=== PATIENT | male | born 1995 | race African-American/Black ===

== ENCOUNTER 2020-12-05 20:14 | Emergency (ER) | payer OTHER ==
[2020-12-05 20:23] VITALS: BP 143/82
[2020-12-05] MEDS ORDERED: TOBRAM/DEXAMETH OPHTH DROPS 2.5 ML EACHEYE STA (20:32)
--- NOTE | 2020-12-05 20:35 | ED Physician Documentation ---
PD HPI OPHTHO - Stated complaint Stated Complaint: BILAT EYE REDNESS/IRRITATED - Chief complaint Chief Complaint: Heent - History obtained from History obtained from: Patient - Additional information Additional information: Healthy 25-year-old gentleman has had eye irritation for about 5 to 6 days. It started on the right and is now on both sides. [place] moisturizing drops which have not been helpful. Subsequently got a homeopathic drop which was also not helpful. No visual deficit. He does not wear contacts. No URI symptoms. No recent travel. Review of Systems Constitutional: denies: Fever, Chills Eyes: reports: Discharge, Irritation Ears: reports: Reviewed and negative PD PAST MEDICAL HISTORY - Past Medical History Past Medical History: Yes Cardiovascular: Hypertension - Past Surgical History Past Surgical History: No - Present Medications Home Medications: Ambulatory Orders Medication Instructions Recorded Confirmed Tobramycin/Dexamethasone [Tobradex 1 drops EACHEYE QID 7 Days #1 12/05/20 Eye Drops] lisinopriL [Zestril] 5 mg PO DAILY 12/05/20 12/05/20 - Allergies Allergies/Adverse Reactions: Allergies Allergy/AdvReac Type Severity Reaction Status Date / Time No Known Drug Allergies Allergy Verified 12/05/20 20:23 - Social History Does the pt smoke?: No Smoking Status: Never smoker Does the pt drink ETOH?: No Does the pt have substance abuse?: No - Immunizations Immunizations are current?: Yes - POLST Patient has POLST: No PD ED PE NORMAL - Vitals Vital signs reviewed: Yes - General General: Alert and oriented X 3, No acute distress - HEENT HEENT: PERRL, EOMI, Other (Bloodshot conjunctivitis bilaterally, soft globes, no current drainage.) - Neck Neck: Supple, no meningeal sign, No bony TTP - Neuro Neuro: Alert and oriented X 3, Normal speech Results - Vitals Vitals: Vital Signs - 24 hr 12/05/20 20:16 Temperature 37.3 C Heart Rate 90 Respiratory 16 Rate Blood Pressure 143/82 H O2 Saturation 98 Oxygen O2 Source Room air Departure - Departure Disposition: 01 Home, Self Care Clinical Impression: Conjunctivitis Condition: Good Record reviewed to determine appropriate education?: Yes Instructions: ED Conjunctivitis Nonspecific Prescriptions: Tobramycin/Dexamethasone [Tobradex Eye Drops] 1 drops EACHEYE QID 7 Days #1 Comments: [place]. Return for new or worsening symptoms.
== END 2020-12-05 20:48 | disposition home or self-care (01) ==
LOC: ED 20:14
DX: H10.9 Unspecified conjunctivitis (principal); I10 Essential (primary) hypertension
CPT/HCPCS: 99282; 99283; A9270

== ENCOUNTER 2021-08-19 13:59 | Outpatient (CLI) | payer OTHER ==
[2021-08-19 15:01] VITALS: BP 124/78
--- NOTE | 2021-08-19 15:01 | SLEEP CARE CONSULTATION ---
Information from patient questionnaire entered by Daniela Fisher MA. I have reviewed and concur with the information entered by Daniela Fisher MA. This document represents the service I personally performed and the decisions made by me, Key Blankenship ARNP. History of Present Illness Service Date and Time: 08/19/2021 1359 Reason for Visit: New patient (ONSET 06/2020, NO PRIORS, ) Chief Complaint: reports: Insomnia, Unrefreshed sleep, Fatigue Date of Onset: 9 MONTHS Usual bedtime: 12 AM Time it takes to fall asleep: 4-5 HOURS Snores at night: Yes Observed to quit breathing while asleep: No Sleeps alone due to snoring: No Number of times waking at night: 2 Reasons for waking at night: reports: Other (unknown). denies: Choking, Snoring, Gasping for air Toss, Turn, or Twitch while sleeping: No (no sure) Recalls having dreams: No (hasn't had a dream for a while) Usually gets out of bed at: 1 PM Feels refreshed in the morning: No Morning headache: No Sleepy or fatigued during the day: Yes Ever fallen asleep while driving: No (no drowsy driving) Takes day naps: No Dreams during day naps: No Prior sleep studies: No Additional HPI information: I had the pleasure of seeing SOPHIA MEJIA today regarding the possibility of him having a sleep disorder. His current complaints are fatigue, insomnia and unrefreshed sleep. Andrei states that sometimes when he lays down he will feel like there is something in his throat and it causes him to cough. He will also wake up a few times at night coughing. He states this has not occurred for several months. He states he can take up to 3 hours to go to sleep and he will then wake up and not be able to return to sleep for about 30 minutes. He was told by his mother that he snores now. He gets up in morning feeling tired. He is working nights 230 to 1030 since May. Before this he was getting up at 0500 to go to work at 0600. His ability to fall asleep has been worse since this change. - Parasomnia Symptoms Ever been unable to move upon waking from sleep: No Walks in sleep: No Talks in sleep: No Ever acted out dreams in sleep: No Ever felt weak in the knees when startled or emotional: No Bothered by creepy, crawly, restless sensations in legs: No Problems with memory or concentration: No Subjective Initial [place] Sleepiness Scale score: 6 (2021) Past Medical History Past Medical History: reports: Hypertension, Anxiety, Depression Social History The patient's occupation is a [employer]. Patient is Single and lives in [place]. 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) Review of Systems Weight gain over past 5 years: 40 Cardiovascular: reports: high blood pressure, palpitations, irregular heart rate or pulse Gastrointestinal: denies: heartburn Neurological: denies: headaches, head trauma Psychiatric: reports: anxiety, depression Ear/Nose/Throat: denies: injury to nose, tonsillectomy Endocrine: denies: thyroid disease Immunologic: denies: allergies to food or environment Physical Exam Vital signs obtained and entered by: DANIEL RICO Blood Pressure: 124/78 (RIGHT, PULSE 67, RESP 16,) Cuff size: wrist Heart Rate: 67 O2 Saturation: 98 (PAPER MASK) Height: 6 ft Weight: 220 lb (CLOTHES AND SHOES) Body Mass Index: 29.8 BMI Classification: Overweight Neck circumference: 17.2 (inches) Mouth and throat: narrow oropharynx Soft palate: long Hard palate: normal Uvula: normal Uvula visualization: 50% Mallampati Class II Tongue: enlarged in size with teeth reynolds on lateral edges Tonsils: 1+ Neck: normal w/o lymphadenopathy or thyromegaly Heart: regular rate and rhythm Lungs: clear bilaterally Impression and Plan 1. Suspected Obstructive Sleep Apnea-Hypopnea Syndrome, as suggested by a history of loud and irregular snoring, unrefreshed sleep, and excessive daytime sleepiness. Narrow oropharynx and obesity are common predisposing factors for obstructive sleep apnea-hypopnea syndrome. I recommend proceeding to polysomnography to confirm the diagnosis and to assess severity. If the patient has significant sleep disordered breathing, a manual CPAP titration study will also be performed to find the optimal treatment pressure. I informed the patient of what the sleep studies involve and after some discussion, obtained agreement to proceed. The pathophysiology of obstructive sleep apnea-hypopnea syndrome was discussed with the patient and health risks of cardiovascular and cerebrovascular disease if not treated. Risks of drowsy driving discussed in detail and patient advised to avoid long distance driving and to puller machine at the first sign of drowsiness. Patient agreed to plan. * Schedule polysomnography +- manual CPAP titration study and return in 1-2 weeks after the study to discuss result and initiate therapy. * Avoid long distance driving or driving when feeling sleepy. * Avoid alcohol, sedative and muscle relaxant around bedtime. * Attempt to lose weight. * Review instructions provided by trained office staff on how to prepare for the sleep study. * Return for follow-up after sleep study completed. Counseling Topics: Weight loss health impact Visit Type: In Office Time Spent with Patient (minutes): 33 Provider Statement: I spent 100% of the Face to Face Visit with the patient with greater than 50% spent counseling the patient and coordination of care.
== END 2021-08-19 14:00 | disposition home or self-care (01) ==
LOC: SC 13:59
PROVIDERS: ATTEND Nurse Practitioner Family
DX: R06.83 Snoring (principal); G47.8 Other sleep disorders; G47.10 Hypersomnia, unspecified
CPT/HCPCS: 99203; 99212